=== PATIENT | male | born 1975 | race Caucasian/White ===

== ENCOUNTER → 2016-12-07 11:05 | Outpatient (CLI) | payer OTHER ==
[2012-11-20 06:43] VITALS: BMI 25.1
== END | disposition home or self-care (01) ==
LOC: D.US 11:05
DX: E04.9 Nontoxic goiter, unspecified (principal)

== ENCOUNTER → 2017-08-29 09:57 | Outpatient (CLI) | payer OTHER ==
[2012-11-20 06:43] VITALS: BMI 25.1
== END | disposition home or self-care (01) ==
LOC: D.RAD 09:57
DX: R13.10 Dysphagia, unspecified (principal)

== ENCOUNTER 2018-09-24 06:59 | Day surgery (SDC) | payer OTHER ==
[~2018-09-24] VITALS: Ht 188 cm; Wt 93.0 kg
--- NOTE | ~2018-09-24 | OP ---
PATIENT NAME: CHINYERE MANZO MEDICAL RECORD: [id number] :73 LOCATION:[facility] ADMISSION DATE: SURGEON: HARLEY ESTEVES MD DATE OF OPERATION: 09/24/2018 PREOPERATIVE DIAGNOSES: Nasal obstruction, septal deviation, turbinate hypertrophy, sleep apnea, and tonsil hypertrophy. POSTOPERATIVE DIAGNOSES: Nasal obstruction, septal deviation, turbinate hypertrophy, sleep apnea, and tonsil hypertrophy. PROCEDURES: Septoplasty, bilateral inferior turbinate reduction, tonsillectomy, and uvulectomy. SURGEON: Harley Esteves MD ANESTHESIA: General orotracheal. BLOOD LOSS: Less than 5 cc. SPECIMENS: Right and left tonsil. PACKING: Hein splints bilaterally. COMPLICATIONS: None. DISPOSITION: Recovery, stable. DESCRIPTION OF PROCEDURE: He was brought to the operating room, placed in the supine position, sedated and intubated by anesthesia. Eyes were taped and head drape was applied. His nose was examined using a headlight and nasal speculum. The septum, floor of the nose, and inferior turbinates were injected with a total of 1.5 cc of 1% lidocaine with 1:100,000 epinephrine and 2 Afrin pledgets were placed in each side of the nose. Table was turned 90 degrees. Head drape was applied and he was positioned for tonsillectomy. Using a headlight, a Ranjana-Dharmesh mouth gag was carefully inserted and elevated on a towel. His palate was examined and palpated, it was normal. Palate was retracted and nasopharynx was examined. There was no significant adenoid tissue. The choanae and eustachian orifices were normal bilaterally. The right tonsil was grasped at the superior pole with a straight Allis clamp. Spatula cautery on a setting of 9 was used to dissect out the tonsil along its capsule, preserving the anterior and posterior tonsillar pillar. The left tonsil was removed in the same fashion. Then, both sides of the nose were irrigated with saline after Afrin pledgets were removed. The tonsillar fossae were agitated. Suction cautery on a setting of 20 was used to control minimal oozing. With the field clean and dry, the uvula was grasped. It was divided near its base, preserving all of the palate mucosa with spatula tip cautery on a setting of 10. Then, the mucosa was sewn over the defect and the uvula with multiple interrupted 3-0 Vicryl. The tonsil fossae were closed as well using a combination of interrupted simple and horizontal mattress sutures with 3-0 Vicryl. With the field clean and dry, Ranjana-Dharmesh mouth gag was let down and removed. Then, the nose was addressed. He was positioned, prepped and draped in usual sterile fashion. All the packing had already been removed. Right-sided Vini incision was made and ipsilateral mucoperichondrial flap was elevated. A bony spur was removed inferiorly. Bony cartilaginous junction was disarticulated. OPERATIVE REPORT [id number] CHINYERE MANZO Contralateral posterior mucoperichondrial flap was elevated. Scissors was used to make a cut above and below the bony spur that was removed. Relaxing incision was made in the septum. This allowed the septum to fall back to the midline. The inferior turbinates were both medialized with a freer. A Gruenwald was used to take down the inferior redundant portions. Suction cautery on a setting of 25 was used to stop any bleeding and both outfractured with a [place] elevator. With the septum intact and midline, the Vini incision was closed with interrupted 4-0 chromic. Hein splints with mupirocin ointment were placed bilaterally and sutured to the anterior membranous septum with 2-0 Prolene on a Maury needle. Field was clean and dry. He was awakened, extubated, and transported to recovery in good condition. No complications. 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
--- NOTE | ~2018-09-24 | HP ---
PATIENT: CHINYERE MANZO MEDICAL RECORD: [id number] ACCOUNT: [id number] LOCATION:[facility] : 73 ADMISSION DATE: 09/24/18 PCP: CHICA HURD MD HISTORY AND PHYSICAL EXAMINATION PREOPERATIVE HISTORY AND PHYSICAL HISTORY OF PRESENT ILLNESS: Chinyere is a 43. He has been having significant problems with nasal obstruction, obstructive tonsillar hypertrophy symptoms. He is admitted for a tonsillectomy, septoplasty, turbinate reduction, and uvulectomy. PAST MEDICAL HISTORY: Includes reactive airway disease, multinodular goiter. PAST SURGICAL HISTORY: Includes hernia repair in 2011. CURRENT MEDICATIONS: Synthroid, acyclovir, modafinil, Claritin, [place] for SI joint pain. ALLERGIES: No known drug allergies. PHYSICAL EXAMINATION: GENERAL: Healthy-appearing, developmentally normal. FACE: Normal, symmetric, no lesions. EYES: Sclerae and conjunctivae are normal. EARS: Canals and TMs are normal. NOSE: He has a septal deviation to the left, large inferior turbinates. ORAL CAVITY AND OROPHARYNX: Long, thick, and edematous uvula. Large tonsils. Pharynx and palate are normal. NECK: No masses, no adenopathy. CHEST: Clear. CARDIOVASCULAR: Regular rate and rhythm, no murmur. EXTREMITIES: Normal. IMPRESSION: Nasal obstruction, septal deviation, turbinate hypertrophy, chronic tonsillitis, tonsillar hypertrophy, recurrent uvula edema, sleep apnea. PLAN: Septoplasty, bilateral inferior turbinate reduction, tonsillectomy, and uvulectomy. TRANSINT:[id number] Voice Confirmation ID: [id number] DOCUMENT ID: [id number] HARLEY ESTEVES MD at 1817 CC: [id number] DICTATION DATE: 09/20/18 1359 SALES ORDER COORDINATOR: 09/20/18 1420 [facility] 09/24/18 [place] [address]
[2018-09-24 07:25] LABS: HEMATOCRIT 44.1 % (42.0-54.0); HEMOGLOBIN 14.9 g/dL (13.5-17.5); MCH 29.6 pg (26.0-34.0); MCHC 33.8 g/dL (31.0-37.0); MCV 87.7 fL (80.0-100.0); MEAN PLATELET VOLUME 10.5 fL (7.4-10.4); RBC 5.03 10x6/uL (4.20-6.10); RDW 12.5 % (11.5-14.5); WBC 5.7 10x3/uL (4.8-10.8)
[2018-09-24] MEDS ORDERED: LEVOTHYROXINE50 MCG PO (07:46)
[2018-09-24] MEDS ORDERED: ZOVIRAX400 MG PO (07:47)
[2018-09-24] MEDS ORDERED: LOSARTAN POTASS25 MG PO (07:49)
[2018-09-24] MEDS ORDERED: NORCO 10-325 TA1 TAB PO (07:50)
[2018-09-24] MEDS ORDERED: PROVIGIL200 MG PO (07:51)
[2018-09-24] MEDS ORDERED: ROBAXIN500 MG PO (07:52)
[2018-09-24] MEDS ORDERED: CLARITIN 10 MG10 MG PO (07:54)
[2018-09-24] MEDS ORDERED: RANITIDINE HCL150 M1 PO (07:55)
[2018-09-24 08:16] VITALS: BP 133/93; Ht 188 cm; Wt 93.0 kg
== END 2018-09-24 15:00 | disposition home or self-care (01) ==
LOC: D.OPS 06:59
PROVIDERS: Anesthesiology
DX: J35.01 Chronic tonsillitis (principal); J35.1 Hypertrophy of tonsils; J34.3 Hypertrophy of nasal turbinates; J34.2 Deviated nasal septum; J34.89 Other specified disorders of nose and nasal sinuses; G47.30 Sleep apnea, unspecified; Z01.812 Encounter for preprocedural laboratory examination